=== PATIENT | female | born 1980 | race Caucasian/White ===

== ENCOUNTER 2022-09-29 19:50 | Emergency (ER) | payer BC ==
[2022-09-29] MEDS ORDERED: Sodium Chloride 0.9% 1,000 ML IV ONE (21:19)
[2022-09-29] MEDS ORDERED: Meclizine 12.5 MG Tab PO ONE (21:19)
== END 2022-09-29 22:51 | disposition home or self-care (01) ==
LOC: JD.ED 19:50
DX: R42 Dizziness and giddiness (principal); Z72.0 Tobacco use; Z88.8 Allergy status to other drugs, medicaments and biological substances
CPT/HCPCS: 36415; 70450; 80053; 85025; 96360; 99284; A9270; J7030